=== PATIENT | male | born 1955 | race Caucasian/White ===

== ENCOUNTER 2016-06-26 16:31 | Emergency (ER) | payer OTHER ==
[~2016-06-26] VITALS: Ht 175.3 cm; Wt 75.0 kg
[~2016-06-26 16:31] MED LIST: NO MEDS
[2016-06-26 16:43] VITALS: Ht 175.3 cm; Wt 75.0 kg
[2016-06-26] MEDS ORDERED: FLUORESCEIN STRIP RIGHT EYE ONE (17:30)
[2016-06-26] MEDS ORDERED: TETRACAINE 0.5% 4 ML OPH RIGHT EYE ONE (17:30)
--- NOTE | 2016-06-26 18:00 | ERA ---
ER Documentation Chief Complaint Date/Time DATE: 06/26/16 TIME: 17:58 Chief Complaint rt eye pain , itching HPI 60-year-old male with history of allergies percent with eye irritation. Patient describes a watery-like discharge in both eyes but worse in the right eye. Patient states he has been scratching his eye migrans him in the eye. Patient states that there is a foreign body sensation in the right eye. Patient does not take any medication at this time to improve the symptoms. Patient also complains of sneezing and congestion over the past few weeks. Patient has a positive history for seasonal rhinitis. Patient does not take any medications for the symptoms. ROS All systems reviewed and are negative except as per history of present illness. Medications Home Meds Active Scripts Loratadine* (Claritin*) 5 Mg Tab.rapdis, 5 MG PO DAILY, #30 TAB Prov:BELLE PICHARDO PA-C 06/26/16 Erythromycin* (Erythromycin* Ophthalmic) 1 Applic Oint, 1 APPLIC BOTH EYES QID for 7 Days, EA Prov:BELLE PICHARDO PA-C 06/26/16 Acetaminophen* (Tylenol*) 325 Mg Tablet, 1 TAB PO Q8 Y for PAIN AND OR ELEVATED TEMP, #20 TAB Prov:BELLE PICHARDO PA-C 06/26/16 Reported Medications [No Meds] No Conflict Check 08/20/15 Allergies Allergies: Coded Allergies: No Known Allergy (Unverified , 06/14/11) PMhx/Soc Medical and Surgical Hx: pt denies Medical Hx, pt denies Surgical Hx History of Surgery: No Anesthesia Reaction: No Hx Neurological Disorder: No Hx Respiratory Disorders: No Hx Cardiac Disorders: No Hx Psychiatric Problems: No Hx Miscellaneous Medical Probl: No Hx Alcohol Use: No Hx Substance Use: No Hx Tobacco Use: No Smoking Status: Never smoker Physical Exam Vitals Vital Signs Date Time Temp Pulse Resp B/P Pulse Ox O2 Delivery O2 Flow Rate FiO2 06/26/16 16:43 98.1 78 18 116/65 98 Physical Exam Const: Well-appearing 17-year-old male well-developed presenting with his . Head: Atraumatic Eyes: Mildly injected sclera. PERRLA. Extraocular movements are intact bilaterally. ENT: Normal External Ears and Mouth. Swollen turbinates of the nares bilaterally. Color within normal limits. Neck: Full range of motion..~ No meningismus. Resp: Clear to auscultation bilaterally Cardio: Regular rate and rhythm, no murmurs Abd: Soft, non tender, non distended. Normal bowel sounds Skin: No petechiae or rashes Back: No midline or flank tenderness Ext: No cyanosis, or edema Neur: Awake and alert Psych: Normal Mood and Affect Results 24 hrs Current Medications Medications (Trade) Dose Ordered Sig/Zhang Route PRN Reason Start Time Stop Time Status Last Admin Dose Admin Tetracaine HCl (Tetracaine 0.5% Steri-Unit Joselyn) 1 drop ONCE ONCE RIGHT EYE 06/26/16 17:30 4 17:31 DC Fluorescein Sodium (Srrtt-F-Ewrrp) 1 strip ONCE ONCE RIGHT EYE 06/26/16 17:30 06/26/16 17:31 DC Procedures/MDM 60-year-old male complaining of right eye irritation possible foreign body sensation. Went ahead and evaluated with a forcing stain and tetracaine to numb the eye first. Fluoroscene exam revealed an epithelial defect in the right eye but no epithelial defect in the left eye. Slit lamp was used and revealed a foreign body in the right eye which was removed with a 22-gauge needle. There were no complications. Slit-lamp was used to evaluate the left eye as well which was unremarkable. We will go ahead and give the patient erythromycin for prophylaxis in both eyes due to his tendency of itching. Patient will also receive acetaminophen for any pain or discomfort and Claritin for seasonal allergies upon discharge. Patient has been told he should follow-up with primary care provider for chronic management of seasonal rhinitis. Departure Diagnosis: Primary Impression: Pain in eye Qualified Code: H57.11 - Pain in eye, right Condition: Stable Additional Instructions: Follow up with your PCP within the next 1-3 days for a more thorough evaluation and a possible referral to a specialist. Return the the emergency department immediately if symptoms worsen or change. If you have any questions regarding medications, ask your pharmacist or us before you leave. If any adverse reactions occur while taking your medications, discontinue the treatment and return to the emergency department immediately. Take your medications as directed, and complete the entire course of treatment. BELLE PICHARDO PA-C Jun 26, 2016 18:00
[2016-06-26] MEDS ORDERED: ACET325T33 PO (19:06)
[2016-06-26] MEDS ORDERED: LORA5TAB4 PO (19:06)
[2016-06-26] MEDS ORDERED: ERYTOPOI BOTH EYES (19:06)
== END 2016-06-26 19:17 | disposition home or self-care (01) ==
LOC: FTE 16:31
DX: H57.11 Ocular pain, right eye (principal)
CPT/HCPCS: Z7502; Z7610; 99283